=== PATIENT | female | born 1940 | race Caucasian/White ===

== ENCOUNTER 2021-06-14 07:36 | Day surgery (SDC) | payer MEDICARE ==
[~2021-06-14] VITALS: Ht 160 cm; Wt 89.7 kg
[2021-06-14] MEDS ORDERED: K-DUR 10 MEQ T10 MEQ PO (08:10)
[2021-06-14] MEDS ORDERED: PRILOSEC 20MG20 MG PO (08:10)
[2021-06-14] MEDS ORDERED: COZAAR 25MG25 MG/TAB PO (08:10)
[2021-06-14 08:11] VITALS: BP 121/64; PULSE 87; TEMP 96.9
[2021-06-14] MEDS ORDERED: CYMBALTA 60MG60 MG PO (08:11)
[2021-06-14] MEDS ORDERED: LASIX 40MG TABL40 MG PO (08:11)
[2021-06-14 09:55] VITALS: BP 129/72; PULSE 80
--- NOTE | 2021-06-14 09:55 | NUR ---
Patient arrived on cart from endo suite. Report obtained from ANNIKA Lucas. Vitals obtained. Patient is alert and oriented, but drowsy. Daughter is present. Vitals obtained and are WNL. Warm blanket provided. Call murray with reach. Will continue to monitor.
[2021-06-14 10:10] VITALS: BP 106/66; PULSE 73
--- NOTE | 2021-06-14 10:10 | NUR ---
Patient is alert and oriented. Requested a warm muffin and ice water. Vitals obtained. Call murray is within reach. Will continue to monitor.
[2021-06-14 10:25] VITALS: BP 115/82; PULSE 74
--- NOTE | 2021-06-14 10:30 | NUR ---
Patient expressed desire to be discharged. Vitals obtained. Criteria has been met. IV discontinued at this time. Catheter tip intact. No redness or swelling noted and pressure bandage applied. Discharge instructions reviewed with patient and her daughter. Patient verbalized understanding. Waiting on to come speak with patient before escorting down to patient entrence. Call murray is within reach.
--- NOTE | 2021-06-14 11:15 | NUR ---
talked to patient and her daughter. Patient was escorted out to patient entrence via wheelchair by ANNIKA Mukherjee. Patient has her personal belongings and discharge instructions. Patient was transferred into the care of her daughter, who is driving.
== END 2021-06-14 11:15 | disposition home or self-care (01) ==
LOC: SDCO 07:36
DX: Z12.11 Encounter for screening for malignant neoplasm of colon (principal); K57.30 Diverticulosis of large intestine without perforation or abscess without bleeding; I10 Essential (primary) hypertension; J45.909 Unspecified asthma, uncomplicated; G47.33 Obstructive sleep apnea (adult) (pediatric); J21.9 Acute bronchiolitis, unspecified; M19.90 Unspecified osteoarthritis, unspecified site; E78.00 Pure hypercholesterolemia, unspecified; F41.9 Anxiety disorder, unspecified; F32.A Depression, unspecified; Z90.49 Acquired absence of other specified parts of digestive tract; Z85.038 Personal history of other malignant neoplasm of large intestine; Z98.0 Intestinal bypass and anastomosis status; Z79.899 Other long term (current) drug therapy; Z99.89 Dependence on other enabling machines and devices; Z90.710 Acquired absence of both cervix and uterus; Z90.89 Acquired absence of other organs
CPT/HCPCS: J2704; J7120

== ENCOUNTER 2021-07-22 17:36 | Emergency (ER) | payer MEDICARE, OTHER ==
[~2021-07-22] VITALS: Ht 160 cm; Wt 89.5 kg
[~2021-07-22 17:36] MED LIST: COZAAR 25MG25 MG/TAB PO; CYMBALTA 60MG60 MG PO; K-DUR 10 MEQ T10 MEQ PO; LASIX 40MG TABL40 MG PO; PRILOSEC 20MG20 MG PO
[2021-07-22 17:44] VITALS: TEMP 98
[2021-07-22 20:32] VITALS: BP 154/78; PULSE 76
== END 2021-07-22 21:01 | disposition home or self-care (01) ==
LOC: COL.ER 17:36
DX: S63.501A Unspecified sprain of right wrist, initial encounter (principal); I10 Essential (primary) hypertension; K21.9 Gastro-esophageal reflux disease without esophagitis; Z79.899 Other long term (current) drug therapy; W01.0XXA Fall on same level from slipping, tripping and stumbling without subsequent striking against object, initial encounter; Y92.009 Unspecified place in unspecified non-institutional (private) residence as the place of occurrence of the external cause

== ENCOUNTER 2021-11-19 07:25 | Day surgery (SDC) | payer MEDICARE, OTHER ==
[~2021-11-19] VITALS: Ht 160 cm; Wt 92.6 kg
[2021-11-19] VITALS (9 sets, daily range): BP systolic 121–142; BP diastolic 59–77; PULSE 79–93; TEMP 97.7–98.2
[2021-11-19] MEDS ORDERED: ZOCOR 40MG40 MG PO (08:29)
[2021-11-19] MEDS ORDERED: NORCO 325 MG-51 TAB PO (12:02)
--- NOTE | 2021-11-19 13:00 | NUR ---
PT TO BAY 7 PER CART FROM PACU. RECEIVED REPORT FROM ANNIKA PALMER. VS GRISEL. PT ON 3L PER MASK. WILL CONTINUE TO MONITOR PT. PT STATES SHE IS WANTING TO REST. DENIES ANY NEEDS AT THIS TIME
--- NOTE | 2021-11-19 13:15 | NUR ---
PT CONTINUES TO REST COMFORTABLY. WILL CONTINUE TO MONITOR PT.
--- NOTE | 2021-11-19 13:30 | NUR ---
PT CONTINUES TO REST.
--- NOTE | 2021-11-19 13:45 | NUR ---
PT DENIES ANY NEEDS AT THIS TIME.
--- NOTE | 2021-11-19 14:00 | NUR ---
PT CONTINUES TO DENY ANY NEEDS. WILL CONTINUE TO MONITOR.
--- NOTE | 2021-11-19 14:30 | NUR ---
PT TOLERATING SPRITE AND MUFFIN. PT DENIES ANY ISSUES AT THIS TIME.
--- NOTE | 2021-11-19 15:00 | NUR ---
PT STATES SHE IS FEELING A LITTLE UNCOMFORTABLE. WILL CONTINUE TO MONITOR.
--- NOTE | 2021-11-19 15:20 | NUR ---
PT RATES PAIN AT 8/10. i HYDROCODONE GIVEN. WILL CONTINUE TO MONITOR.
--- NOTE | 2021-11-19 15:25 | NUR ---
IV DC'D. PT TOLERATED WELL.
--- NOTE | 2021-11-19 15:40 | NUR ---
DISCHARGE EDUCATION COMPLETED WITH PT AND HER DAUGHTER. VERBLAIZED UNDERSTANDING OF HOME AND FOLLOW UP CARE. ALL QUESTIONS ANSWERED. DISCHARGE PAPERWORK GIVEN TO PT.
--- NOTE | 2021-11-19 16:00 | NUR ---
PT OFF UNIT PER WHEELCHAIR. PT DISCHARGE TO HOME WITH DAUGHTER PER PERSONAL VEHICLE.
== END 2021-11-19 16:00 | disposition home or self-care (01) ==
LOC: SDCO 07:25
DX: K43.2 Incisional hernia without obstruction or gangrene (principal)
CPT/HCPCS: C1781; J0690; J1100; J1170; J2405; J2704; J3010; J7120

== ENCOUNTER → 2022-09-04 | Outpatient (CLI) | payer MEDICARE, OTHER ==
[~2022-09-04] MED LIST changes: +NORCO 325 MG-51 TAB PO; +ULTRAM 50MG TAB50 MG PO; +ZOCOR 40MG40 MG PO
== END ==
LOC: COL.LAB 12:35
DX: R07.89 Other chest pain (principal)

== ENCOUNTER → 2022-12-17 | Outpatient (CLI) | payer MEDICARE, OTHER | LOC: COL.RAD 14:24 | DX: R42 Dizziness and giddiness (principal); R26.89 Other abnormalities of gait and mobility; R51.9 Headache, unspecified; R20.2 Paresthesia of skin; R68.89 Other general symptoms and signs | CPT/HCPCS: Q9967 ==

== ENCOUNTER → 2023-01-07 | Outpatient (CLI) | payer MEDICARE, OTHER | LOC: COL.RAD 10:05 | DX: K44.9 Diaphragmatic hernia without obstruction or gangrene (principal); K21.9 Gastro-esophageal reflux disease without esophagitis ==

== ENCOUNTER → 2023-01-08 | Outpatient (CLI) | payer MEDICARE, OTHER | LOC: COL.RAD 12:27 | DX: M51.36 Other intervertebral disc degeneration, lumbar region (principal); M51.37 Other intervertebral disc degeneration, lumbosacral region; M47.816 Spondylosis without myelopathy or radiculopathy, lumbar region; M47.817 Spondylosis without myelopathy or radiculopathy, lumbosacral region; M48.061 Spinal stenosis, lumbar region without neurogenic claudication; R20.2 Paresthesia of skin; R26.89 Other abnormalities of gait and mobility ==